=== PATIENT | female | born 1990 | race Caucasian/White ===

== ENCOUNTER 2019-04-13 06:54 | Day surgery (SDC) | payer OTHER ==
[~2019-04-13] VITALS: Ht 160 cm; Wt 131.1 kg
[2019-04-13 07:33] VITALS: BP 144/71; PULSE 75; TEMP 97.6
[2019-04-13] MEDS ORDERED: FLOMAX 0.40.4 MG/CAP PO (07:46)
[2019-04-13] MEDS ORDERED: ZOFRAN 4MG T4 MG/TAB PO (07:47)
[2019-04-13] MEDS ORDERED: LEVAQUIN 5500 MG/TA1 PO (07:47)
[2019-04-13] MEDS ORDERED: PERCOCET 325 MG1 TA2 PO (07:48)
--- NOTE | 2019-04-13 07:49 | NUR ---
TO RM AT 0704- CALL LIGHT IN REACH FAMILY AT BEDSIDE
[2019-04-13 11:05] VITALS: BP 138/72; PULSE 75; TEMP 98.1
--- NOTE | 2019-04-13 11:05 | NUR ---
TO RM 8 PER CART FROM [facility]. ALERT ORIENTED X3, TALKING TO NURSING STAFF AND FAMILY. DRINKING WATER AND TOLERATING WELL. C/O "SLIGHT CRAMPING" DENIES N/V
[2019-04-13 11:20] VITALS: BP 145/85; PULSE 71
--- NOTE | 2019-04-13 11:20 | NUR ---
02 SAT 99% ON ROOM AIR. RECEIVED JELLO- ATE 100% AND TOLERATED WELL.
[2019-04-13 11:30] VITALS: BP 144/80; PULSE 74
--- NOTE | 2019-04-13 11:30 | NUR ---
UP AMBULATED TO BATHROOM WITH ASSIST. VOIDED AND TOLERATED WELL
--- NOTE | 2019-04-13 11:40 | NUR ---
RECEIVED DISCHARGE INSRUCTIONS AND VERBALIZED UNDERSTANDING. DISCONTINUED IV AND INT- CATHETER INTACT.
--- NOTE | 2019-04-13 11:50 | NUR ---
DISCHARGED PER WC BY NURSING STAFF TO PRIVATE CAR IN CARE OF -[facility].
== END 2019-04-13 12:12 | disposition home or self-care (01) ==
LOC: SDCO 06:54
DX: N20.1 Calculus of ureter (principal); N39.0 Urinary tract infection, site not specified; Z87.442 Personal history of urinary calculi; E66.9 Obesity, unspecified; Z68.42 Body mass index [BMI] 45.0-49.9, adult; Z79.899 Other long term (current) drug therapy; E28.2 Polycystic ovarian syndrome; Z80.1 Family history of malignant neoplasm of trachea, bronchus and lung; Z82.49 Family history of ischemic heart disease and other diseases of the circulatory system; Z83.42 Family history of familial hypercholesterolemia
CPT/HCPCS: C1726; C1769; C2617; J0690; J1100; J2405; J2704; J3010; J7120; Q9967